=== PATIENT | male | born 1995 | race Two or more races ===

== ENCOUNTER 2022-07-24 21:20 | Emergency (ER) | payer OTHER ==
[~2022-07-24] VITALS: Ht 180.3 cm; Wt 81.8 kg
[2022-07-24 21:50] VITALS: BP 151/76
[2022-07-24] MEDS ORDERED: CEPH-510 PO (22:15)
[2022-07-24] MEDS ORDERED: IBUP800T26 PO (22:15)
== END 2022-07-25 02:43 | disposition home or self-care (01) ==
LOC: ER 21:20
DX: S61.214A Laceration without foreign body of right ring finger without damage to nail, initial encounter (principal); Z88.0 Allergy status to penicillin; W23.0XXA Caught, crushed, jammed, or pinched between moving objects, initial encounter; Y93.89 Activity, other specified; Y92.89 Other specified places as the place of occurrence of the external cause; Y99.8 Other external cause status